=== PATIENT | male | born 1980 | race Caucasian/White ===

== ENCOUNTER 2025-01-09 21:02 | Emergency (ER) | payer BC, SELFPAY ==
[2025-01-09 21:07] VITALS: BP 135/84
[2025-01-09] MEDS: MOTRIN 800 MG PO (22:23)
[2025-01-09 22:24] VITALS: BMI 24.4
--- NOTE | 2025-01-09 22:37 | ED.MUSCINJ ---
HPI-Injury
General
Chief Complaint: Musculo-Skeletal Complaint
Source: patient and spouse
Exam Limitations: none
Time Seen by Provider: 01/09/25 22:13
Nursing documentation reviewed up to this point in time: agreed with
History of Present Illness-Injury
Is this injury a work related problem?: No
Initial Injury comments:
This is a 44-year-old gentleman with no significant past medical history who states earlier today he inadvertently stubbed his right second toe on a piece of furniture. Noted immediate moderate pain as well as some numbness to his right second toe.
He continues with some pain, bruising at the mid to proximal aspect of his right second toe as well as mild numbness. He has not taken anything for pain. He denies pain to his foot nor ankle. No fall.
He takes no medicines on a daily basis.
Past History
Past History
ED Past Medical History: None
ED Past Surgical History: None
Social History
Tobacco: Non-smoker
Alcohol: Occasional
Personal:
Living: with family
Employment: Employed
Family History
Family History: Other (Noncontributory)
Phy Exam
Physical Exam
Physical Exam:
PHYSICAL EXAMINATION:
General: 44-year-old gentleman appears his stated age, bright and alert, pleasant, appears in no acute distress. Reading a book. is accompanying.
HEENT: Normocephalic, atraumatic. Oral mucosa is moist.
LUNG: Respirations are easy and nonlabored. No cough appreciated.
SKIN: Warm and dry, normal color. Good turgor. No rash. Skin is intact.
Neuro: alert and oriented. no focal neurological deficits
Psychiatric: well kept. interactive and cooperative
Musculoskeletal: [Right second toe has mild ecchymosis and mild to moderate local tenderness at the mid to proximal lateral aspect. There is very minimal lateral deviation of the toe. Moderately limited range of motion of
the IP joint. No crepitus. No tenderness to the MCP joint nor tenderness to fellow toes nor tenderness to the foot. No significant soft tissue swelling. Distal sensation and strength intact. Rapid capillary refill. Peripheral pulses are full
and equal.]
Injury Course
Orders/Labs/Results
Orders:
Orders
01/09/25 22:18
Ibuprofen [Motrin] 800 mg PO NOW STA
Toes 2 Views, Right [CR Toe(s) Min 2 Vw Right] Urgent
Comment:
Reason For Exam: trauma right 2nd toe. pain mid/prox aspect
01/09/25 22:50
Jean Pierre Tape Right-Treatment ONCE
Cast Shoe Right-Treatment ONCE
MDM/Problems Addressed
Differential Diagnosis Includes:
Concern for right second toe contusion versus fracture. Neurovascularly intact.
Will medicate for pain with ibuprofen and check x-ray.
*Radiology
Radiology exam reviewed: preliminary read by ED provider (Comminuted fracture distal aspect of the proximal phalanx of the right second toe. Very minimal lateral angulation but overall in good alignment.)
*Pulse Oximetry
Patient hypoxic: no
*Critical Care Note
Total Time (30-74mins, 75-104mins- exclusive of procedures): Not Applicable
Update Note
Update Note:
23:30
X-ray shows comminuted fracture distal aspect of the proximal phalanx of the second toe. There is very minimal lateral deviation but overall in good alignment.
Toe has been jean pierre taped to its fellow, third toe.
Plan was for cast shoe but unable to locate a large shoe and thus patient declines.
Recommend follow-up with podiatry versus orthopedics and has been provided referral information for podiatry.
ED Attending Note
-
Portions of this chart may have been created with voice recognition software.� Occasional wrong word or��sound alike� substitutions may have occurred due to the inherent limitations of voice recognition software.
Discharge Plan
Departure
Patient Disposition: Home (Routine Discharge)
Date of Disposition: 01/09/25
Time of Disposition: 23:32
Patient with high blood pressure during this ER visit?: No
Condition: Good
Discharge Problem:
Comminuted fracture right second toe
Instructions: Toe Fracture ED
Prescriptions:
New
ibuprofen 800 mg tablet
800 mg PO QIDPRN PRN (Reason: pain, fever) Qty: 30 0RF
No Action
famciclovir 500 MG tablet
500 mg PO TID Qty: 20 0RF
Referrals:
Nimco Shirley DPM [Active] - Call in 1-3 days for appt
Du Murillo, [Family Provider] -
Interventions
Interventions:
*Risk Screen - Suicide Last Done: 01/09/25 22:24
*General Assessment Last Done: 01/09/25 21:07
*Neglect/Abuse Screening Last Done: 01/09/25 22:24
*ED- Fall Risk Assessment Last Done: 01/09/25 22:24
*ED COVID-19 Vaccine History Last Done: 01/09/25 21:07
ED-Musculoskeletal Assessment Last Done: 01/09/25 22:24
Discharge Date and Time
Print Language: ALBANIAN
== END 2025-01-09 23:38 | disposition home or self-care (01) ==
LOC: EMR 21:02
PROVIDERS: EMERGENCY PHYSICIAN Emergency Medicine; FAMILY PHYSICIAN Family Medicine
DX: S92.514A Nondisplaced fracture of proximal phalanx of right lesser toe(s), initial encounter for closed fracture (principal); W22.03XA Walked into furniture, initial encounter
CPT/HCPCS: 99283; 73660